=== PATIENT | female | born 1960 | race Caucasian/White ===

== ENCOUNTER 2020-05-07 04:22 | Day surgery (SDC) | payer BC ==
--- OUTSIDE RECORDS SUMMARY | 2020-04-30 16:16 | XMS ---
:1960 Author Organization [facility] Support Name Relationship Address Phone [facility] Unavailable [address] [place] [address] [facility] Unavailable [address] [place] [address] MARIE LESLIE [address] [facility] [place] [id number] Re-disclosure Warning The records that you are about to access may contain information from federally- assisted alcohol or drug abuse programs. If such information is present, then the following federally mandated warning applies: This information has been disclosed to you from records protected by federal confidentiality rules (42 CFR part 2). The federal rules prohibit you from making any further disclosure of this information unless further disclosure is expressly permitted by the written consent of the person to whom it pertains or as otherwise permitted by 42 CFR part 2. A general authorization for the release of medical or other information is NOT sufficient for this purpose. The Federal rules restrict any use of the information to criminally investigate or prosecute any alcohol or drug abuse patient.The records that you are about to access may contain highly sensitive health information, the redisclosure of which is protected by Article 27-F of the [facility] Public Health law. If you continue you may haveaccess to information: Regarding HIV / AIDS; Provided by facilities licensed or operated by the [facility] Office of Mental Health; or Provided by the [facility] Office for People With Developmental Disabilities. If such information is present, then the following [facility] mandated warning applies: This information has been disclosed to you from confidential records which are protected by state law. State law prohibits you from making any further disclosure of this information without the specific written consent of the person to whom it pertains, or as otherwise permitted by law. Any unauthorized further disclosure in violation of state law may result in a fine or [place] [facility] sentence or both. A general authorization for the release of medical or other information is NOT sufficient authorization for further disclosure. Allergies and Adverse Reactions Type Description Substance Reaction Status Data Source(s ) AMOXICILLIN Amoxicillin NEXTGEN ([employer]) CIPROFLOXACIN HCL CIPROFLOXACIN HCL NEXTGEN ([employer]) CIPROFLOXACIN Ciprofloxacin NEXTGEN ([facility]) Encounters Encounter Providers Location Date Indications Data Source(s ) Outpatient 09/16/2019 06:33:00 [facility] ([facility]) Outpatient 09/15/2019 06:58:00 [facility] ([facility]) Outpatient 09/09/2019 06:31:00 [facility] ([facility]) Outpatient 09/08/2019 06:51:00 [facility] ([facility]) Insurance Providers Payer name Policy type Policy ID Covered Covered democrat's Policy P daxa / Coverage democrat ID relationship to [employer] Inf ormation type [place] BC EPO [id number] SP [id number] BC EPO [id number] SP [id number] EMPIRE BLUE [id number] 23 SHIELD MCR EMPIRE [id number] BC/BS 23 BC EPO [id number] SP [id number] BC EPO [id number] SP [id number] Results ID Date Data Source [id number] 09/11/2019 09:08:58 PM EST [facility] ([id number]) >PATIENT: Annemarie SteveeringDATE OF : 1960ATE: 09/07/2019 9:15 AM VISIT TYPE: Office Visit - GYNThis 59 year old female presents for annual exam and history of breast cancer.History of Pres ent Illness:1. annual exam Currently : no. : 2. Parity: : 2. Negative for: breast discharge, breast lump(s), breast pain and breast self exam.Postmen opausal: Type: chemo induced. Menopausal symptoms negative for: hot flashes and vaginal dryness. Pertinent negatives include abnormal vaginal bleeding, vaginal disch arge and vaginal itching.The patient states her exercise level is moderate and frequency is 5/week. The patient does not use tobacco. She has not been exposed to pas sive smoke. She does drink alcohol. Denies vaginal bleeding 2. history of breast cancer hx of breast cancer 12 years go s/p mastectomy also s/p Tamoxifen and Arimid ex sees oncology 1x per year no breast masses or lumpsGynecologic History:Patient is postmenopausal. Menopause occurred in 2006. Type of menopause is chemo induced .Date of last Pap: 05/06/2011.Date of last mammogram: 03/30/2007. Date of last colonoscopy: 03/15/2009OBSTETRIC HISTORYNot currently . :2. Parity: Term:0 . Pre-Term: 0. : 2. Livin. Spontaneous abortions: 1. Induced abortions: 1. Past Systemic HistoryMedical History (Detailed)Disease Onset Date Commentscho lelithiasis 2015 Adrenal nodule (R) 3.2 cm 2015 Colon polyps (TA) 06/21/2014 GERD 2006 Lyme disease 2002 Pt is BrCa neg Tonsillitis breast reconstruction and a bdominoplasty 03/2008 Hypertension Invasive Lobular carcinoma Left breast 03/2007 Pt had a very large multicentric tumor. Tx Chemo 03/21-08/22, bilateral mastecomy/nodes neg , radiation left chest wall 10/20- 12/20.Surgical History/Management (Detailed)Management Date Commentslaparoscopic cholecystectomy 07/23/15 07/23/2015 colonoscopy due 2018 with weight loss oral antibiotics chemo, bilateral mastectomy, RT 09/2007 Pt had a very large multicentric tumor. Tx Chemo 03/21-08/22, bilateral mastecomy/nod es neg, radiation left chest wall 10/20- 12/20.tonsillectomy Pap Result, HPV Detail and Diagnostic/Treatment PerformedDate Test Procedure Pap Result HPV Detail Comments 05/06/2011 LAB PROBLEM LIST: Problem List reviewed. Problem Description Onset Date Chronic Clinical Status NotesHypertension, Benign 06/16/2011 Y Breast cancer, left 07/14/2016 Cough 01/29/2018 N Wheezing 01/29/2018 N Medications (active prior to today)Medication Name Sig Description Start Date Stop Date Refilled Rx Elsewheremult ivitamin Tab / / YCaltrate Plus 600 mg calcium-400 unit Tab Take 1 tablet by mouth twice daily // YArimidex 1 mg Tab take 1 tablet (1MG) by oral route every day / 09/07/2019 YVitamin C 500 mg tablet // Yrisedronate 150 mg tablet take 1 tablet by oral route every month /09/07/2019 Yramipril 10 mg capsule TAKE 1 CAPSULE D AILY 07/14/2016 09/07/2019 07/14/2016 NProAir HFA 90 mcg/actuation aerosol inhaler inhale 2 puff by inhalation route every 4 - 6 hours as needed as needed 01/29/2018 N Medication ReconciliationMedications reconciled today.Allergies:Ingredient Reaction (Severity) Medication Name CommentCIPROFLOXACIN Hives (severe) Cipro CIPROFLOXACIN HCL H roseline (severe) Cipro Family History (Detailed)Relationship Family Member Name Age at Condition Onset Age Cause of No family history of Cancer -ov keyana N No family history of Cancer -breast NBrother Parkinson's Disease NFather Y NFather Y CAD/[place] YFather N Cancer, colon 64 NMother N Hypertensio n NMother Y NMother Diabetes mellitus 80 NMother Y failure to thrive YSister Y NSister Systemic lupus erythematosus NSister Y Myelodysplast ic syndrome YFAMILY HISTORY COMMENTSRelationship Family Member Name Condition CommentsSister Myelodysplastic syndrome due to complications of bone marrow transplantS ocial History: (Detailed)Tobacco use reviewed.Preferred language is [place]. 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 CHILDRENDoes not have children.Tobacco use status: Current non-smoker.Smoking status: Never smoker.SMOKING STATUSType Smoking Status Usage Per Day Years Used Total Pack Years Never smoker TOBACCO/VAPING EXPOSURENo passive smoke exposure. ALCOHOLThere is a histo ry of alcohol use. consumed occasionally.CAFFEINEThe patient uses caffeine.LIFESTYLEModerate activity level. Exercise includes walking. 5/week. Review of SystemsSyst em Neg/Pos DetailsConstitutional Negative Chills, Fever and Night sweats.ENMT Negative Sore throat.Respiratory Negative Dyspnea.Cardio Negative Chest pain.GI Ne gative Abdominal pain, Blood in stool and Constipation. Negative Abnormal vaginal bleeding, Dysuria and Vaginal dryness.Endocrine Negative Cold intolerance.Neuro Negative Dizziness.Psych Negative Insomnia.MS Negative Back pain.Enrico/Lymph Negative Easy bleeding.Allergic/Immuno Negative Contact allergy.Reproductive Positive The patien t is post-menopausal (The year was 2006. The menopause was chemo induced).Reproductive Negative Breast discharge, Breast lumps, Breast pain, Breast self exam, History o f abnormal PAP smear, Hot flashes, Vaginal discharge and Vaginal itching.Vital SignsTime BP mm/Hg Pulse /min Resp /min Temp F Ht ft Ht in Ht cm Wt lb Wt kg BMI kg/m2 BSA m2 O2 Sat%9:24 AM 156/102 89 5.0 3.00 160.02 218.00 98.883 38.62 Measured ByTime Measured by9:24 AM Lady Ordoñez TerrancenPhysical ExamExam Findings DetailsConstitutional Normal Well developed.Breast * Inspection - Right: s/p mastectomy, Left: s/p mastectomy.Breast Normal Palpation - Right: Normal, Left: Normal. Nipples - Right: Normal, L eft: Normal. Lymph nodes - Normal.Respiratory Normal Inspection - Normal. Auscultation - Normal. Effort - Normal.Cardiovascular Normal Regular rhythm. No murmurs, gall ops, or rubs.Abdomen Normal Anterior palpation - No rebound. No abdominal tenderness. No hepatic enlargement. No hernia.Genitourinary * Uterus - antevert ed. Adnexa - non-palpable, bilateral. Pap not performedGenitourinary Normal Urethral meatus - Normal. External genitalia - Normal. Glands - Normal. Perineum - Normal. Vagi na - Normal. Cervix - Normal. No suprapubic tenderness. No CVA tenderness. No vaginal discharge.Skin Normal Inspection - Normal.Extremity Normal No edema.Psychia tric Normal Orientation - Oriented to time, place, person and situation. Appropriate mood and affect.Assessment/Plan# Detail Type Description 1. 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 Follows with oncology for breast cancer screening Last 2017 NILM. 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 Assessment H/O malignant neoplasm of breast (Z85.3). Impression s/p mastectomy s/p T amoxifen and Arimidex doing well sees oncology 1x per year. 3. Assessment Hypertension, benign (I10). Impression BP elevated today 156/102 pt reports eating at an Amharic restaurant yesterday and eating lots of salty foods also no water this AM to follow up with primary. Medications (Added, Continued or Stopped today):Started Medication Dir ections Instruction Stopped Arimidex 1 mg Tab take 1 tablet (1MG) by oral route every day 09/07/2019 Caltrate Plus 600 mg calcium-400 unit Tab Take 1 tablet by [facility] twice daily multivitamin Tab 01/29/2018 ProAir HFA 90 mcg/actuation aerosol inhaler inhale 2 puff by inhalation route every 4 - 6 hours as needed as needed 016 ramipril 10 mg capsule TAKE 1 CAPSULE DAILY 09/07/2019 risedronate 150 mg tablet take 1 tablet by oral route every month 09/07/2019 Vitamin C 500 mg tablet Pro vider: Rosalind Etienne MD 09/07/2019 10:16 AMDocument generated by: Rosalind Etienne MD 09/07/2019 10:16 AM ----[facility], [facility]PElectroniccity [facility] signed by Rosalind Etienne MD on 09/11/2019 09:08 Annemarie Patiño [id number] 1960 09/07/2019 09:15 AM Page: / Name Value Range Interpretation Code Description Data Vaishnavi rce(s) Supporting Document(s ) Procedure
[2020-05-06 13:41] VITALS: BMI 33.7
--- OUTSIDE RECORDS SUMMARY | 2020-05-07 04:25 | XMS ---
:1960 Author Organization [facility] Support Name Relationship Address Phone [facility] Unavailable [address] [place] [address] [facility]available [address] [place] [address] [address]IE LESL[address] [facility] [place] [id number] Re-disclosure Warning The records that you are [...] is protected by Article 27-F of the [facility] Public Health law. If you continue you may haveaccess to information: Regarding HIV / AIDS; Provided by facilities licensed or operated by the [facility] Office of Mental Health; or Provided by the [facility] Office for People With Developmental Disabilities. If such information is present, then the following [facility] mandated warning applies: This information has [...] law may result in a fine or senior care sentence or both. A general authorization for the release of medical or other information is NOT sufficient authorization for further disclosure. Allergies and Adverse Reactions Type Description Substance Reaction Status Data Source(s ) AMOXICILLIN Amoxicillin NEXTGEN ([employer]) CIPROFLOXACIN HCL CIPROFLOXACIN HCL NEXTGEN ([email or web address]) CIPROFLOXACIN Ciprofloxacin NEXTGEN ([email or web address]) Encounters Encounter Providers Location Date Indications Data Source(s ) Outpatient 09/16/2019 06:33:00 [facility]) Outpatient 09/15/2019 06:58:00 [facility] ([facility]) Outpatient 09/09/2019 06:31:00 [facility] ([facility]) Outpatient 09/08/2019 06:51:00 [facility] ([facility]) Insurance Providers Payer name Policy type Policy ID Covered Covered libertarian's Policy P daxa / Coverage libertarian ID relationship to [employer] Inf ormation type bal[place]ena BC EPO [id number] SP [id number] BC EPO [id number] SP [id number] EMPIRE BLUE [id number] CROSS BLUE 23 SHIELD MCR EMPIRE [id number] BC/BS 23 BC EPO [id number] SP [id number] BC EPO [id number] SP [id number] Results ID Date Data Source [id number] 09/11/2019 09:08:58 PM EST [facility] EN ([facility] [id number] [facility]) >PATIENT: Annemarie HeartDATE OF : 1960ATE: 09/07/2019 9:15 AM VISIT [...] NBrother Parkinson's Disease NFather Y NFather Y CAD/[place] YFather N Cancer, colon 64 NMother N Hypertensio n NMother Y NMother Diabetes mellitus 80 NMother Y failure to thrive YSister Y NSister Systemic lupus erythematosus NSister Y Myelodysplast ic syndrome YFAMILY HISTORY COMMENTSRelationship Family Member Name Condition CommentsSister Myelodysplastic syndrome due to complications of bone marrow transplantS ocial History: (Detailed)Tobacco use reviewed.Preferred language is Belgian. 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 CHILDRENDoes not have [...] Detail Type Description 1. Assessment Encntr for icer hand exam (general) (routine) w/o abn findings (Z01.419). Follows with oncology for breast cancer screening Last 2017 NILM. 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 Assessment H/O malignant neoplasm of breast (Z85.3). Impression s/p mastectomy s/p T amoxifen and Arimidex doing well sees oncology 1x per year. 3. Assessment Hypertension, benign (I10). Impression BP elevated today 156/102 pt reports eating at an Latvian restaurant yesterday and eating lots of salty foods also no water this AM to follow up with primary. Medications (Added, Continued or Stopped today):Started Medication Dir ections Instruction Stopped Arimidex 1 mg Tab take 1 tablet (1MG) by oral route every day 09/07/2019 Caltrate Plus 600 mg calcium-400 unit Tab Take 1 tablet by [facility] twice daily multivitamin Tab 01/29/2018 ProAir HFA 90 mcg/actuation aerosol inhaler inhale 2 puff by inhalation route every 4 - 6 hours as needed as needed 016 ramipril 10 mg capsule TAKE 1 CAPSULE DAILY 09/07/2019 risedronate 150 mg tablet take 1 tablet by oral route every month 09/07/2019 Vitamin C 500 mg tablet Pro vider: Rosalind Eitenne MD 09/07/2019 10:16 AMDocument generated by: Rosalind Etienne MD 09/07/2019 10:16 AM ----[facility], [facility]PElectronicf[facility] signed by Rosalind Etienne MD on 09/11/2019 09:08 Annemarie Patiño [id number] 1960 09/07/2019 09:15 AM Page: / Name Value Range Interpretation Code Description Data Vaishnavi rce(s) Supporting Document(s ) Procedure
[2020-05-07] MEDS ORDERED: PROPOFOL 20 ML ONE ×2 (09:18→11:28)
[2020-05-07] MEDS ORDERED: DEXAMETHASONE SOD PHOSPHATE 4 MG/1 ML VIAL ONE (09:18)
[2020-05-07] MEDS ORDERED: MIDAZOLAM HCL 2 MG/2 ML SINGLE DOSE VIAL ONE (09:18)
[2020-05-07] MEDS ORDERED: ONDANSETRON 4 MG/2 ML VIAL IVPUSH PRN (10:20)
[2020-05-07] MEDS ORDERED: oxyCODONE HCL 5 MG TABLET PO PRN (10:20)
[2020-05-07] MEDS ORDERED: LACTATED RINGERS SOLUTION 1,000 ML IV SCH (10:30)
[2020-05-07] MEDS ORDERED: LIDOCAINE HCL/PF 2% SDV 5ML VIAL ONE (11:15)
--- NOTE | 2020-05-07 13:23 | OP ---
Operative Note - Note: Operative Date: 05/07/20 Pre-Operative Diagnosis: Thick EE. ?polyp Operation: hysteroscopy. polypectomy. D&C Post-Operative Diagnosis: Same as Pre-op
--- NOTE | 2020-05-07 13:25 | DS ---
Physical Examination Vital Signs: Vital Signs Temperature 97.8 F 05/07/20 12:50 Pulse Rate 60 05/07/20 12:50 Respiratory Rate 16 05/07/20 12:50 Blood Pressure 121/70 05/07/20 12:50 O2 Sat by Pulse Oximetry (%) 100 05/07/20 12:50 Constitutional: Yes: Well Nourished, No Distress, Calm Eyes: Yes: WNL, Conjunctiva Clear, EOM Intact HENT: Yes: WNL, Atraumatic, Normocephalic Neck: Yes: WNL, Supple, Trachea Midline Cardiovascular: Yes: WNL, Regular Rate and Rhythm Respiratory: Yes: WNL, Regular, CTA Bilaterally Gastrointestinal: Yes: WNL, Normal Bowel Sounds Musculoskeletal: Yes: WNL Extremities: Yes: WNL Edema: No Integumentary: Yes: WNL Neurological: Yes: WNL, Alert, Oriented ...Motor Strength: WNL Psychiatric: Yes: WNL Discharge Summary Problems reviewed: Yes Reason For Visit: POSTMENOPAUSAL BLEEDING Procedures: Principal: Hysteroscopy. Resection of mass (Polyp?Septum?). D&C - Instructions Diet, Activity, Other Instructions: Dr. Parrish SUSHI CHEF discharge instructions Physical activity: Resume your normal everyday activity as tolerated no heavy lifting or exercise until seen by your surgeon. You may walk unlimited amounts and climb stairs. You may resume driving the car when you feel safe and comfortable behind the wheel. Wound care: If you have a bandage, leave it on, and keep dry for 48 hours. After that time discard the outer bandage. If they are tapes on the skin under the outer of bandage leave them in place. They will peel off in the next 7 to 10 days. Do Not Peel them off. If there are tapes present on the skin, you may shower over them. Diet: There are no dietary restrictions. Eat healthy, high-fiber foods. Drink 6 to 8 glasses of liquid each day. This will assist in keeping your bowels are regular. Pain management: You may take Tylenol or acetaminophen or Ibuprofen (for example, Motrin, Advil etc.) every 6 hours as needed for pain. Call Dr. Parrish for any of the following: * Severe pain not relieved by medication * Fever of 101 or higher * Excessive bleeding or drainage on dressing Call the office at [phone] for an appointment in seven to 10 days. Disposition: HOME - Home Medications Comprehensive Discharge Medication List: Ambulatory Orders Hydrochlorothiazide [Hctz -] 25 mg PO DAILY 05/06/20 Ramipril 10 mg PO DAILY 05/06/20
[2020-05-07 13:58] VITALS: BP 133/77; PULSE 84; TEMP 97.5
--- NOTE | 2020-05-08 12:56 | OP ---
DATE OF OPERATION: DATE OF DICTATION: 05/07/2020 PREOPERATIVE DIAGNOSIS: Thick endometrial echo, suspecting uterine polyp, high risk profile for endometrial cancer. POSTOPERATIVE DIAGNOSIS: Thick endometrial echo, suspecting uterine polyp, high risk profile for endometrial cancer, uterine septum? OPERATION: 1. Hysteroscopy. 2. Dilation and curettage. 3. Polypectomy, questionable removal of the septum. SURGEON: Alcon Parrish MD ANESTHESIA: Mike Chand MD, general LMA. PROCEDURE & FINDINGS: Under light general anesthesia in dorsal lithotomy position patient was examined. Uterus was found to be upper normal size, anteverted. Adnexa were negative. Routine prep and drape was carried out. Bladder was emptied. Cervix was grasped with tenaculum and put under traction. Hysteroscope was gently placed in the uterine cavity. Cavity was characteristic for a growth, septum-like connection between anterior and posterior wall extending through the whole length of the fundus. Passage on either side was done and tubal ostia were at the end of each passage. Polyp in the endocervical canal, on top of it, was also seen. With further dilation using gallstone forceps, the structure was completely removed. Removal was relatively easy which makes me doubt the diagnosis of real septum. Either way, the tissue looked benign. It was sent for the pathology evaluation. Sharp curettage was then performed using mid-size curette and specimen was sent for the evaluation as well. Post curettage hysteroscopy showed essentially empty cavity. The endocervical polyp was by that time removed as well and sent with the specimen. In general, gross appearance of benign pathology. It was secured. When all instruments were removed there was no bleeding. Blood loss was negligible throughout the procedure. Patient was awakened and transferred to PACU comfortable and stable. ALCON PARRISH MD [id number]
--- NOTE | 2020-05-12 10:18 | PATH ---
Surgical Pathology Report Patient Name: ARNULFO HUDSON [facility]. Rec. #: [id number] /Age/Gender: 1960 (Age: 59) / F Account: [id number] Location: [facility] Taken: 05/07/2020 Received: 05/07/2020 Reported: 05/12/2020 Physicians: Lake Parrish MD Specimen(s) Received A: SEPTUM B: ENDOMETRIAL CURETTINGS Clinical History Postmenopausal bleeding Final Diagnosis A. "SEPTUM?", DILATION AND CURETTAGE: POLYPOID FRAGMENTS OF ENDOMETRIUM WITH COMPLEX ATYPICAL HYPERPLASIA. B. CURETTINGS, DILATION AND CURETTAGE: POLYPOID FRAGMENTS OF ENDOMETRIUM WITH COMPLEX ATYPICAL HYPERPLASIA AND SCANT BENIGN CERVICAL TISSUE. Comment: Case seen in interdepartmental review with consensus on diagnosis. Findings discussed with Dr. Parrish, 05/08/20. Electronically Signed Allison Salgado M.D. Gross Description A. Received in formalin labeled "septum?" Is a 2.5 x 2.2 x 0.6 cm aggregate of cobian-pink, irregular to polypoid portions of soft tissue. The formalin is filtered and the specimen is entirely submitted in 2 cassettes. B. Received in formalin labeled "curettings," is a 2.0 x 1.6 x 0.3 cm aggregate of cobian-red, irregular to polypoid soft tissue fragments. The formalin is filtered and the specimen is entirely submitted in one cassette. DL/05/07/2020 saudi/05/07/2020
== END 2020-05-07 13:55 | disposition home or self-care (01) ==
LOC: JASU-SURG 04:22
PROVIDERS: ATTEND Specialist
PROC: 0UB98ZX Excision of Uterus, Via Natural or Artificial Opening Endoscopic, Diagnostic (ICD-10-PCS; principal; 2020-05-07 10:00)
PROC: 0UDB8ZX Extraction of Endometrium, Via Natural or Artificial Opening Endoscopic, Diagnostic (ICD-10-PCS; 2020-05-07 10:00)
DX: N85.00 Endometrial hyperplasia, unspecified (principal); R93.89 Abnormal findings on diagnostic imaging of other specified body structures; Z15.04 Genetic susceptibility to malignant neoplasm of endometrium
CPT/HCPCS: 88305-TC; 94760

== ENCOUNTER 2020-06-25 04:46 | Inpatient (IN) | payer BC ==
[2020-06-24 14:22] VITALS: BMI 33.7
[2020-06-25] MEDS ORDERED: PHENAZOPYRIDINE HCL 100 MG TABLET (FP) ONE (08:49)
[2020-06-25] MEDS ORDERED: PHENAZOPYRIDINE HCL 100 MG TABLET (FP) PO ONE (09:00)
[2020-06-25] MEDS ORDERED: BUPIVACAINE LIPOSOME/PF (EXPAREL) 266 MG/20 ML VIAL ONE (09:28)
[2020-06-25] MEDS ORDERED: MIDAZOLAM HCL 2 MG/2 ML SINGLE DOSE VIAL ONE ×2 (09:29)
[2020-06-25] MEDS ORDERED: PROPOFOL 20 ML ONE ×2 (10:14→13:01)
[2020-06-25] MEDS ORDERED: ROCURONIUM BROMIDE 50 MG/5 ML SYRINGE ONE (10:14)
[2020-06-25] MEDS ORDERED: fentaNYL CITRATE 250 MCG/5 ML VIAL ONE (10:14)
[2020-06-25] MEDS ORDERED: ceFAZolin SODIUM 1 GM VIAL IVPB ONE (10:15)
[2020-06-25] MEDS ORDERED: SUCCINYLCHOLINE CHLORIDE 200 MG/10 ML SYRINGE ONE (10:16)
[2020-06-25] MEDS ORDERED: NEOSTIGMINE METHYLSULFATE 0.5 MG/ML - 10 ML MDV ONE (11:53)
[2020-06-25] MEDS ORDERED: DEXAMETHASONE SOD PHOSPHATE 4 MG/1 ML VIAL ONE (11:56)
[2020-06-25] MEDS ORDERED: KETOROLAC TROMETHAMINE 30 MG/1 ML VIAL ONE (11:56)
[2020-06-25] MEDS ORDERED: ceFAZolin SODIUM 1 GM VIAL ONE (11:56)
[2020-06-25] MEDS ORDERED: LIDOCAINE HCL/PF 2% SDV 5ML VIAL ONE (11:56)
[2020-06-25] MEDS ORDERED: GLYCOPYRROLATE 0.2 MG/1 ML VIAL ONE (11:56)
[2020-06-25] MEDS ORDERED: BENZOIN/ALOE VERA/STORAX/TOLU 58 ML BOTTLE ONE (13:13)
[2020-06-25] MEDS ORDERED: oxyCODONE HCL 5 MG TABLET PO PRN (13:33)
[2020-06-25] MEDS ORDERED: BISACODYL 5 MG TABLET.DR (FP) PO PRN (13:33)
[2020-06-25] MEDS ORDERED: SIMETHICONE 80 MG TAB.CHEW (FP) PO PRN (13:33)
[2020-06-25] MEDS ORDERED: DOCUSATE SODIUM 100 MG CAPSULE (FP) PO PRN (13:33)
[2020-06-25] MEDS ORDERED: ONDANSETRON 4 MG/2 ML VIAL IVPUSH PRN (13:33)
[2020-06-25] MEDS ORDERED: BENZOCAINE/MENTH/CETYLPYRD CL 1 EACH LOZENGE MM PRN (13:41)
[2020-06-25] MEDS ORDERED: HYDROmorphone HCl 2 MG/ML VIAL IVPB ONE (14:13)
[2020-06-25] MEDS ORDERED: HYDROmorphone HCl 2 MG/ML VIAL ONE (14:15)
[2020-06-25] MEDS ORDERED: HYDROmorphone *PCA* 10MG/50ML DISP.SYRIN ONE (14:19)
[2020-06-25] MEDS ORDERED: HYDROmorphone *PCA* 10MG/50ML DISP.SYRIN PCA SCH (14:30)
[2020-06-25] MEDS: SODIUM CHLORIDE 1,000 ML IV SCH (15:55)
[2020-06-25] MEDS ORDERED: IBUPROFEN 800 MG/8 ML IJ IVPB SCH (16:00)
[2020-06-25] MEDS: LACTATED RINGERS SOLUTION 1,000 ML IV SCH (17:15)
[2020-06-25] MEDS: CEFAZOLIN 1 GM in DEXTROSE 5%-WATER - 50 ML IVPB SCH (17:51)
[2020-06-25] MEDS ORDERED: CEFAZOLIN 1 GM/D5W 1 GM/50 ML BAG IVPB SCH (18:30)
[2020-06-25] MEDS ORDERED: ACETAMINOPHEN 1000 MG/100 ML VIAL (NON FORMULARY) IVPB SCH (19:00)
[2020-06-25] MEDS: IBUPROFEN 800 MG/8 ML IJ IVPB SCH (20:28)
[2020-06-25] MEDS: ACETAMINOPHEN 1000 MG/100 ML VIAL (NON FORMULARY) IVPB SCH (22:48)
[2020-06-26] MEDS ORDERED: ceFAZolin SODIUM 1 GM VIAL ONE ×2 (02:20→09:27)
[2020-06-26] MEDS ORDERED: DEXTROSE 5%-WATER - 50 ML IVPB ONE ×2 (02:20→09:27)
[2020-06-26] MEDS: CEFAZOLIN 1 GM in DEXTROSE 5%-WATER - 50 ML IVPB SCH ×2 (02:25→10:46)
[2020-06-26] MEDS: IBUPROFEN 800 MG/8 ML IJ IVPB SCH ×4 (02:26→22:10)
[2020-06-26] MEDS: ACETAMINOPHEN 1000 MG/100 ML VIAL (NON FORMULARY) IVPB SCH ×2 (05:53→12:32)
[2020-06-26 08:03] LABS: HEMATOCRIT 38.4 % (32.4-45.2); HEMOGLOBIN 12.6 GM/dL (10.7-15.3); MCH 28.8 pg (25.7-33.7); MCHC 32.7 g/dl (32.0-36.0); MEAN CELL VOLUME 87.8 fl (80-96); PLATELET COUNT 203 K/MM3 (134-434); RBC 4.37 M/mm3 (3.60-5.2); RDW 13.2 % (11.6-15.6); WHITE BLOOD COUNT 13.5 K/mm3 (4.0-10.0)
[2020-06-26 08:26] LABS: POTASSIUM 4.3 mmol/L (3.5-5.1)
[2020-06-26 08:30] LABS: BLOOD UREA NITROGEN 12.8 mg/dL (7-18)
[2020-06-26 09:13] LABS: CREATININE 0.6 mg/dL (0.55-1.3)
[2020-06-26] MEDS: RAMIPRIL 5 MG CAPSULE PO SCH (09:19)
[2020-06-26] MEDS: HYDROCHLOROTHIAZIDE 25 MG TABLET (FP) PO SCH (09:21)
[2020-06-26] MEDS: ENOXAPARIN NA (PORCINE) 40 MG/0.4 ML DISP.SYRIN SQ SCH (09:21)
[2020-06-26] MEDS ORDERED: IBUPROFEN 600 MG TABLET (FP) PO PRN ×2 (11:30→12:00)
[2020-06-26] MEDS ORDERED: ACETAMINOPHEN 500 MG TABLET (FP) PO PRN (14:00)
[2020-06-26] MEDS: SODIUM CHLORIDE 1,000 ML IV SCH (17:20)
[2020-06-26] MEDS: LACTATED RINGERS SOLUTION 1,000 ML IV SCH (17:20)
[2020-06-26] MEDS: FAMOTIDINE 10 MG TABLET PO PRN (17:24)
[2020-06-27] MEDS: IBUPROFEN 800 MG/8 ML IJ IVPB SCH ×3 (02:12→09:42)
[2020-06-27 05:36] VITALS: PULSE 93
[2020-06-27] MEDS ORDERED: PCA PUMP NR ONE (06:37)
[2020-06-27 08:16] LABS: BASO % 0.7 % (0-2.0); EOS % 1.4 % (0-4.5); HEMATOCRIT 34.8 % (32.4-45.2); HEMOGLOBIN 11.5 GM/dL (10.7-15.3); LYMPH % 24.2 % (8-40); MCH 28.9 pg (25.7-33.7); MCHC 33.1 g/dl (32.0-36.0); MEAN CELL VOLUME 87.4 fl (80-96); MEAN PLT VOLUME 8.3 fl (7.5-11.1); MONO % 9.9 % (3.8-10.2); NEUT % 63.8 % (42.8-82.8); PLATELET COUNT 193 K/MM3 (134-434); RBC 3.98 M/mm3 (3.60-5.2); RDW 13.3 % (11.6-15.6)
[2020-06-27 08:28] LABS: POTASSIUM 4.1 mmol/L (3.5-5.1)
[2020-06-27 08:30] LABS: CALCIUM 8.1 mg/dL (8.5-10.1)
[2020-06-27 08:31] LABS: BLOOD UREA NITROGEN 8.9 mg/dL (7-18)
[2020-06-27 08:34] LABS: CREATININE 0.5 mg/dL (0.55-1.3)
[2020-06-27] MEDS: RAMIPRIL 5 MG CAPSULE PO SCH (09:30)
[2020-06-27] MEDS: HYDROCHLOROTHIAZIDE 25 MG TABLET (FP) PO SCH (09:31)
[2020-06-27] MEDS: ENOXAPARIN NA (PORCINE) 40 MG/0.4 ML DISP.SYRIN SQ SCH (09:31)
[2020-06-27] MEDS: FAMOTIDINE 10 MG TABLET PO PRN (09:47)
[2020-06-27 14:01] VITALS: BP 144/83; TEMP 98.6
== END 2020-06-27 13:55 | disposition home or self-care (01) | DRG 743 ==
LOC: JASUSAT 04:46 → J8W 16:17 → JASUSAT 16:18
PROVIDERS: ADMIT Specialist; ATTEND Specialist
PROC: 0UT20ZZ Resection of Bilateral Ovaries, Open Approach (ICD-10-PCS; 2020-06-25)
PROC: 0UJD4ZZ Inspection of Uterus and Cervix, Percutaneous Endoscopic Approach (ICD-10-PCS; 2020-06-25)
PROC: 0DNW0ZZ Release Peritoneum, Open Approach (ICD-10-PCS; 2020-06-25)
PROC: 8E0W0CZ Robotic Assisted Procedure of Trunk Region, Open Approach (ICD-10-PCS; 2020-06-25)
PROC: 3E1M38Z Irrigation of Peritoneal Cavity using Irrigating Substance, Percutaneous Approach (ICD-10-PCS; 2020-06-25)
PROC: 0UT90ZZ Resection of Uterus, Open Approach (ICD-10-PCS; principal; 2020-06-25 10:00)
PROC: 0UT70ZZ Resection of Bilateral Fallopian Tubes, Open Approach (ICD-10-PCS; 2020-06-25 10:00)
DX: N85.00 Endometrial hyperplasia, unspecified (principal); N92.4 Excessive bleeding in the premenopausal period; Z85.3 Personal history of malignant neoplasm of breast; I10 Essential (primary) hypertension; K66.0 Peritoneal adhesions (postprocedural) (postinfection)
CPT/HCPCS: 36415; 74018-TC-FY; 80048; 85025; 85027; 86850; 86900; 86901; 86922; 88108; 88305-TC; 88307-TC; 94760; J0131